=== PATIENT | male | born 1975 | race American Indian/Alaskan Native ===

== ENCOUNTER 2016-08-24 06:58 | Emergency (ER) | payer SELFPAY ==
[2016-08-24] MEDS ORDERED: PEPCID IV ONE (09:40)
[2016-08-24] MEDS ORDERED: DECADRON IV ONE (09:40)
[2016-08-24] MEDS ORDERED: BENADRYL IV ONE (09:40)
[2016-08-24 10:04] LABS: Anion Gap 16 mmol/L; Blood Urea Nitrogen 6 mg/dL (9-20); Calcium 8.3 mg/dL (8.4-10.2); Carbon Dioxide 29 mmol/L (22-30); Chloride 95.7 mmol/L (98-107); Glucose 293 mg/dL (75-100); Potassium 3.5 mmol/L (3.6-5.0); Sodium 137 mmol/L (137-145)
[2016-08-24 10:23] LABS: Basophils % (Auto) 0.3 % (0.0-1.8); Eosinophils % (Auto) 0.8 % (0.0-4.3); Hematocrit 40.8 % (35.5-45.6); Hemoglobin 13.7 gm/dl (11.8-15.2); Mean Corpuscular HGB Conc 33 % (32-34); Mean Corpuscular Hemoglobin 30 pg (28-32); Mean Corpuscular Volume 90 fl (84-94); Platelet Count 228 K/mm3 (140-440); Red Blood Count 4.52 M/mm3 (3.65-5.03); Red Cell Distribution Width 12.8 % (13.2-15.2); White Blood Count 6.6 K/mm3 (4.5-11.0)
--- NOTE | 2016-08-24 11:05 | Emergency Department Report ---
ED General Adult HPI - General Chief complaint: Allergic Reaction Stated complaint: ALLERGIC REACTION Time Seen by Provider: 08/24/16 09:30 Source: patient Mode of arrival: Ambulatory Limitations: No Limitations - History of Present Illness Initial comments: Patient reports is somewhat idiopathic onset of swelling of his lip when he woke up this morning. According to triage she felt like his tongue was swelling also. However, when I asked him about this he denied any tongue swelling. Indeed there is no joint swelling. He denied any swelling of his throat or his neck. He has had no respiratory symptoms. -: unknown Location: face Radiation: non-radiation Improves with: none Worsens with: none Associated Symptoms: denies other symptoms Treatments Prior to Arrival: none - Related Data Home Medications Medication Instructions Recorded Confirmed Last Taken metFORMIN [Glucophage] 500 mg PO BID 08/24/16 08/24/16 08/24/16 Previous Rx's Medication Instructions Recorded Last Taken Type Famotidine [Pepcid] 20 mg PO BID #14 tablet 08/24/16 Unknown Rx Metformin HCl [Glucophage] 1,000 mg PO BID #60 tablet 08/24/16 Unknown Rx Allergies Allergy/AdvReac Type Severity Reaction Status Date / Time No Known Allergies Allergy Unverified 08/24/16 07:11 ED Review of Systems ROS: Stated complaint: ALLERGIC REACTION Other details as noted in HPI Constitutional: denies: chills, fever Eyes: denies: eye pain, eye discharge, vision change ENT: denies: ear pain, throat pain Respiratory: denies: cough, shortness of breath, wheezing Cardiovascular: denies: chest pain, palpitations Endocrine: no symptoms reported Gastrointestinal: denies: abdominal pain, nausea, diarrhea Genitourinary: denies: urgency, dysuria Musculoskeletal: denies: back pain, joint swelling, arthralgia Skin: as per HPI. denies: rash, lesions Neurological: denies: headache, weakness, paresthesias Psychiatric: denies: anxiety, depression Hematological/Lymphatic: denies: easy bleeding, easy bruising ED Past Medical Hx - Past Medical History Previous Medical History?: Yes Hx Diabetes: Yes - Surgical History Past Surgical History?: No - Social History Smoking Status: Current Every Day Smoker Substance Use Type: None - Medications Home Medications: Home Medications Medication Instructions Recorded Confirmed Last Taken Type Famotidine [Pepcid] 20 mg PO BID #14 tablet 08/24/16 Unknown Rx Metformin HCl [Glucophage] 1,000 mg PO BID #60 tablet 08/24/16 Unknown Rx metFORMIN [Glucophage] 500 mg PO BID 08/24/16 08/24/16 08/24/16 History ED Physical Exam - General Limitations: No Limitations General appearance: alert, in no apparent distress - Head Head exam: Present: atraumatic, normocephalic - Eye Eye exam: Present: normal appearance, PERRL, EOMI. Absent: scleral icterus - ENT ENT exam: Present: normal orophraynx, mucous membranes moist, other (swelling. upper lip 1-2+ edema) - Neck Neck exam: Present: normal inspection, other (no neck swelling no stridor). Absent: tenderness - Respiratory Respiratory exam: Present: normal lung sounds bilaterally. Absent: respiratory distress - Cardiovascular Cardiovascular Exam: Present: regular rate, normal rhythm. Absent: systolic murmur, diastolic murmur, rubs, gallop - GI/Abdominal GI/Abdominal exam: Present: soft, normal bowel sounds. Absent: distended, tenderness, guarding, rebound, rigid - Rectal Rectal exam: Present: deferred - Extremities Exam Extremities exam: Present: normal inspection - Back Exam Back exam: Present: normal inspection - Neurological Exam Neurological exam: Present: alert, oriented X3, CN II-XII intact. Absent: motor sensory deficit - Psychiatric Psychiatric exam: Present: normal affect, normal mood - Skin Skin exam: Present: warm, dry, intact, normal color. Absent: rash ED Course Vital Signs 08/24/16 07:11 Temperature 98.3 F Pulse Rate 96 H Respiratory 18 Rate Blood Pressure 163/117 O2 Sat by Pulse 99 Oximetry - Reevaluation(s) Reevaluation #1: Lower lip edema definitely decreased. No airway problems. 08/24/16 11:05 ED Medical Decision Making - Lab Data Result diagrams: 08/24/16 09:36 08/24/16 09:36 Laboratory Results - last 24 hr 08/24/16 08/24/16 09:36 09:36 WBC 6.6 RBC 4.52 Hgb 13.7 Hct 40.8 MCV 90 MCH 30 MCHC 33 RDW 12.8 L Plt Count 228 Lymph % (Auto) 24.8 [place] % (Auto) 12.3 H Eos % (Auto) 0.8 Baso % (Auto) 0.3 Lymph # 1.6 [place] # 0.8 Eos # 0.1 Baso # 0.0 Seg Neutrophils % 61.8 Seg Neutrophils # 4.1 Sodium 137 Potassium 3.5 L Chloride 95.7 L Carbon Dioxide 29 Anion Gap 16 BUN 6 L Creatinine 0.8 Estimated GFR > 60 BUN/Creatinine Ratio 7.50 Glucose 293 H Calcium 8.3 L Critical care attestation.: If time is entered above; I have spent that time in minutes in the direct care of this critically ill patient, excluding procedure time. ED Disposition Clinical Impression: Angioedema of lips Qualifiers: Encounter type: initial encounter Qualified Code(s): T78.3XXA - Angioneurotic edema, initial encounter Hyperglycemia due to type 2 diabetes mellitus Qualifiers: Diabetes mellitus mcfp insulin use: without mcfp use Qualified Code(s ): E11.65 - Type 2 diabetes mellitus with hyperglycemia Disposition: TO HOME OR SELFCARE Is pt being admited?: No Does the pt Need Aspirin: No Condition: Stable Instructions: Diabetes Mellitus Type 2 in Adults (ED), Angioedema (ED) Additional Instructions: Your sugar was almost 300. I would recommend that you increasing her metformin to 1000 mg twice a day. He might need insulin. See your family doctor concerning this. Check your sugar daily as one of the medicines we gave you might make it go up for the next day or 2. Diabetic diet. Rx as directed for 4 or [id number] medicine as it might be cheaper. Continue Benadryl every 6 hours 50 mg for the next 1-2 days. Prescriptions: Famotidine [Pepcid] 20 mg PO BID #14 tablet Metformin HCl [Glucophage] 1,000 mg PO BID #60 tablet Referrals: PRIMARY CARE, [Primary Care Provider] - 3-5 Days Time of Disposition: 11:08
[2016-08-24 11:21] VITALS: BP 162/104
== END 2016-08-24 11:42 | disposition home or self-care (01) ==
LOC: ED 06:58
DX: T78.3XXA Angioneurotic edema, initial encounter (principal); E11.65 Type 2 diabetes mellitus with hyperglycemia; F17.200 Nicotine dependence, unspecified, uncomplicated
CPT/HCPCS: 36415; 80048; 82962; 85025; 96374; 96375; 99283; J1100; J1200

== ENCOUNTER 2016-08-30 20:42 | Emergency (ER) | payer SELFPAY ==
[2016-08-30] MEDS ORDERED: NACL 0.9% 1000 ML 1,000 ML IV ONE (20:57)
[2016-08-30 21:23] LABS: Basophils % (Auto) 0.3 % (0.0-1.8); Eosinophils % (Auto) 1.5 % (0.0-4.3); Hematocrit 42.3 % (35.5-45.6); Mean Corpuscular HGB Conc 33 % (32-34); Mean Corpuscular Hemoglobin 31 pg (28-32); Mean Corpuscular Volume 92 fl (84-94); Platelet Count 239 K/mm3 (140-440); Red Blood Count 4.59 M/mm3 (3.65-5.03); Red Cell Distribution Width 12.7 % (13.2-15.2); White Blood Count 6.5 K/mm3 (4.5-11.0)
[2016-08-30 21:43] LABS: Alanine Aminotransferase 11 units/L (7-56); Albumin 4.1 g/dL (3.9-5); Albumin/Globulin Ratio 1.4 %; Alkaline Phosphatase 158 units/L (35-129); Anion Gap 16 mmol/L; Blood Urea Nitrogen 12 mg/dL (9-20); Calcium 8.7 mg/dL (8.4-10.2); Carbon Dioxide 28 mmol/L (22-30); Chloride 91.1 mmol/L (98-107); Glucose 360 mg/dL (75-100); Lipase 48 units/L (13-60); Potassium 3.7 mmol/L (3.6-5.0); Sodium 131 mmol/L (137-145); Total Protein 7.1 g/dL (6.3-8.2)
[2016-08-30 23:32] LABS: INR 0.79 (0.87-1.13); Partial Thromboplastin Time 24.6 Sec. (24.2-36.6)
[2016-08-31 03:09] VITALS: BP 145/105
--- NOTE | 2016-09-01 19:34 | ED Elopement Review ---
ED Pt Elopement review - Results review Lab results: Laboratory Tests 08/30/16 08/30/16 08/30/16 21:05 21:06 21:06 WBC 6.5 RBC 4.59 Hgb 14.0 Hct 42.3 MCV 92 MCH 31 MCHC 33 RDW 12.7 L Plt Count 239 Lymph % (Auto) 31.8 [place] % (Auto) 10.3 H Eos % (Auto) 1.5 Baso % (Auto) 0.3 Lymph # 2.1 [place] # 0.7 Eos # 0.1 Baso # 0.0 Seg Neutrophils % 56.1 Seg Neutrophils # 3.6 PT INR APTT Sodium 131 L Potassium 3.7 Chloride 91.1 L Carbon Dioxide 28 Anion Gap 16 BUN 12 Creatinine 0.8 Estimated GFR > 60 BUN/Creatinine Ratio 15.00 Glucose 360 H Calcium 8.7 Total Bilirubin 0.30 AST 14 ALT 11 Alkaline Phosphatase 158 H Total Protein 7.1 Albumin 4.1 Albumin/Globulin Ratio 1.4 Lipase 48 Blood Type O NEGATIVE Antibody Screen TNR TESHA Antibody Screen Negative 08/30/16 23:06 WBC RBC Hgb Hct MCV MCH MCHC RDW Plt Count Lymph % (Auto) [place] % (Auto) Eos % (Auto) Baso % (Auto) Lymph # [place] # Eos # Baso # Seg Neutrophils % Seg Neutrophils # PT 11.4 L INR 0.79 L APTT 24.6 Sodium Potassium Chloride Carbon Dioxide Anion Gap BUN Creatinine Estimated GFR BUN/Creatinine Ratio Glucose Calcium Total Bilirubin AST ALT Alkaline Phosphatase Total Protein Albumin Albumin/Globulin Ratio Lipase Blood Type Antibody Screen TESHA Antibody Screen - Call Back decision Pt Call Back Decision: No action required
== END 2016-08-31 03:20 | disposition left against medical advice (07) ==
LOC: ED 20:42
DX: R11.10 Vomiting, unspecified (principal); R10.30 Lower abdominal pain, unspecified; E11.9 Type 2 diabetes mellitus without complications; I10 Essential (primary) hypertension; F17.200 Nicotine dependence, unspecified, uncomplicated; Z53.21 Procedure and treatment not carried out due to patient leaving prior to being seen by health care provider
CPT/HCPCS: 36415; 80053; 83690; 85025; 85610; 85730; 86850; 86900; 86901; 93005; 93010